=== PATIENT | male | born 1985 | race Caucasian/White ===

== ENCOUNTER → 2019-04-11 09:19 | Outpatient (CLI) | payer BC, SELFPAY ==
[2019-04-11 11:23] LABS: Anion Gap 5 (5-15); BUN 18 mg/dL (7-18); BUN/Creat Ratio 19.4 RATIO (10-20); Chloride 108 mmol/L (98-107); Cholesterol 184 mg/dL (200); Creatinine, Serum 0.93 mg/dL (0.70-1.30); EST Glomerular Filtration Rate 100 mL/min (>60); Est Glom Filt Rate - Afr Amer 121 mL/min (>60); Glucose 92 mg/dL (74-106); High Density Lipoprotein 53 mg/dL; Potassium 4.2 mmol/L (3.5-5.1); Sodium Level 141 mmol/L (136-145); Triglycerides 60 mg/dL; Very Low Density Lipoprotein 12 mg/dL (5-40)
== END ==
PROVIDERS: Family Provider Family Medicine; PCP Family Medicine; Referring Provider Family Medicine; Visit Provider Family Medicine
DX: Z13.1 Encounter for screening for diabetes mellitus (principal); Z13.220 Encounter for screening for lipoid disorders
CPT/HCPCS: 36415; 80048; 80061

== ENCOUNTER 2019-05-07 07:25 | Day surgery (SDC) | payer BC, SELFPAY ==
--- NOTE | 2019-04-09 03:23 | HP_ITS ---
Intake Vital Signs 04/09/19 Height 6 ft 04/09/19 Weight: 221 lb 6 oz 04/09/19 Body Mass Index (BMI) 30.0 04/09/19 Blood Pressure 145/78 H 04/09/19 Blood Pressure Location Rt brachial 04/09/19 Blood Pressure Position Sitting 04/09/19 Respiratory Rate 16 04/09/19 Pulse Rate 67 04/09/19 Pulse Ox 99 Intake Visit Reasons: L Inguinal Hernia Chief Complaint: left inguinal hernia Acid Condenser Required: No Is patient in pain?: Yes (left groin into left testicle and left lower abd ) Pain scale (1-10): 5 Allergies No Known Allergies Allergy (Verified 04/09/19 15:07) Medications NK 04/09/19 [History Confirmed 04/09/19] PFSH Medical History Left inguinal hernia (Acute) Surgical History History of bilateral inguinal hernia repair (Acute ~1988) Family History Mother Menieres disease Social History (Updated 04/09/19 @ 15:24 by Alejandro Mccoy MD) Smoking Status: Former smoker HPI HPI HPI: VIKTOR URIBE, is a 34 M who presents to the office today for HPI HPI Surgical H&P: Yes HPI: VIKTOR URIBE, is a 34 M who presents to the office today for Evaluation for a left inguinal hernia. Patient presents with left inguinal pain this happened approximately a month ago when he was working coughed and was turning and felt sharp pain going from his left groin into his testicle area. He states that when he lies down this pain goes away. He has felt a bulge go in and out.He was seen by his primary care physician and diagnosed with a left inguinal hernia presents today. ROS General General: No weight change, appetite, fatigue, colon cancer, breast cancer or weakness HEENT HEENT: No difficulty swallowing, eye injury, eye surgery, swollen glands or hoarseness Endo Endocrine: No thyroid disease, diabetes mellitus, thyroid cancer, Hair loss, heat intolerance or cold intolerance Cardio Cardiovascular: No murmur, pacemaker, heart disease, atrial fibrillation, high blood pressure, heart attack, heart stent, palpitations, shortness of breat with exertion or chest pain Resp Respiratory: No shortness of breath, No sleep apnea, No cough, No COPD, No asthma, No emphysema, No wheezing Gastro Gastrointestinal: No abdominal pain, No nausea or vomiting, No diarrhea, No constipation, No blood in stool, No acid reflux, No hemorrhoids, No ulcers, No gallbladder problem, No black,tarry stools Neuro Neurologic: No weakness Exam Const General: no acute distress, well developed, well hydrated Orientation: oriented to person, oriented to place, oriented to time [facility] Head: normocephalic, atraumatic Ears: external ears normal Mouth: moist mucous membranes Eyes Sclera: sclerae normal Pupils: normal by confrontation Neck Neck: no lymphadenopathy noted Neck mass: No Thyroid: thyroid normal, symmetrical Chest Chest palpation & inspection: normal inspection of the chest Resp Effort & Inspection: normal respiratory effort Auscultation: clear to auscultation bilaterally Percussion: percussion normal Cardio Rate: regular rate Rhythm: regular rhythm Heart Sounds: no murmurs GI Palpation: soft, no hepatosplenomegaly, no masses, tender Rectal Exam: other Other: Reducible left inguinal hernia is palpated. I do not feel any hernias on the right side.He has a large varicocele on the left side as well. Rectal exam deferred. Extrem General: normal to inspection, no clubbing, cyanosis or edema Assessment & Plan Problems 1. Left inguinal hernia K40.90 Plan My plan is to perform a Robotic assisted laparoscopic left inguinal hernia repair. The planned surgical procedure was discussed extensively with the patient. The risks, benefits, anticipated outcomes and possible complication were mentioned. The patient understands that all hernia repair surgery has a chance of recurrence and/or chronic post-operative pain. My staff has also explained the procedure in understandable terms and the patient was given the option to take printed material concerning the planned procedure. The patient had the opportunity to ask questions concerning the planned procedure. The patient freely consents to the planned procedure. Coding Level of Care Code Off vis,new,level 3 Diagnoses Left inguinal hernia K40.90 04/09/19 1524 <Electronically signed by Alejandro snow MD> Date _ Alejandro Mccoy MD
[2019-05-07] VITALS (9 sets, daily range): BP systolic 113–134; BP diastolic 68–85; PULSE 76–90; RESP 16–18; TEMP 36.3–37.1; O2SAT 93–100; BMI 29.7
[2019-05-07] MEDS: Lactated Ringers 1,000 ML 100 ML IV ×3 (07:55→11:32)
--- NOTE | 2019-05-07 09:14 | HP.PCM_ITS ---
History and Physical Date of Admission: 05/07/19 [facility] [address] [place], [place] [address] OFFICE VISIT Date of Service: 04/09/19 MR#: [id number] Acct: [id number] Name: VIKTOR URIBE Rep #: [id number] : 1985 Provider: Alejandro barbosa MD Age/Sex: 34/M Location: [facility] Status: Signed Intake Vital Signs 04/09/19 Height 6 ft 04/09/19 Weight: 221 lb 6 oz 04/09/19 Body Mass Index (BMI) 30.0 04/09/19 Blood Pressure 145/78 H 04/09/19 Blood Pressure Location Rt brachial 04/09/19 Blood Pressure Position Sitting 04/09/19 Respiratory Rate 16 04/09/19 Pulse Rate 67 04/09/19 Pulse Ox 99 Intake Visit Reasons: L Inguinal Hernia Chief Complaint: left inguinal hernia [employer] Required: No Is patient in pain?: Yes (left groin into left testicle and left lower abd ) Pain scale (1-10): 5 Allergies No Known Allergies Allergy (Verified 04/09/19 15:07) Medications NK 04/09/19 [History Confirmed 04/09/19] [facility] Medical History Left inguinal hernia (Acute) Surgical History History of bilateral inguinal hernia repair (Acute ~1988) Family History Mother Menieres disease Social History (Updated 04/09/19 @ 15:24 by Alejandro Mccoy MD) Smoking Status: Former smoker HPI HPI HPI: VIKTOR URIBE is a 34 M who presents to the office today for HPI HPI Surgical H&P: Yes HPI: VIKTOR URIBE is a 34 M who presents to the office today for Evaluation for a left inguinal hernia. Patient presents with left inguinal pain this happened approximately a month ago when he was working coughed and was turning and felt sharp pain going from his left groin into his testicle area. He states that when he lies down this pain goes away. He has felt a bulge go in and out.He was seen by his primary care physician and diagnosed with a left inguinal hernia presents today. ROS General General: No weight change, appetite, fatigue, colon cancer, breast cancer or weakness HEENT HEENT: No difficulty swallowing, eye injury, eye surgery, swollen glands or hoarseness Endo Endocrine: No thyroid disease, diabetes mellitus, thyroid cancer, Hair loss, heat intolerance or cold intolerance Cardio Cardiovascular: No murmur, pacemaker, heart disease, atrial fibrillation, high blood pressure, heart attack, heart stent, palpitations, shortness of breat with exertion or chest pain Resp Respiratory: No shortness of breath, No sleep apnea, No cough, No COPD, No asthma, No emphysema, No wheezing Gastro Gastrointestinal: No abdominal pain, No nausea or vomiting, No diarrhea, No constipation, No blood in stool, No acid reflux, No hemorrhoids, No ulcers, No gallbladder problem, No black,tarry stools Neuro Neurologic: No weakness Exam Const General: no acute distress, well developed, well hydrated Orientation: oriented to person, oriented to place, oriented to time [facility] Head: normocephalic, atraumatic Ears: external ears normal Mouth: moist mucous membranes Eyes Sclera: sclerae normal Pupils: normal by confrontation Neck Neck: no lymphadenopathy noted Neck mass: No Thyroid: thyroid normal, symmetrical Chest Chest palpation & inspection: normal inspection of the chest Resp Effort & Inspection: normal respiratory effort Auscultation: clear to auscultation bilaterally Percussion: percussion normal Cardio Rate: regular rate Rhythm: regular rhythm Heart Sounds: no murmurs GI Palpation: soft, no hepatosplenomegaly, no masses, tender Rectal Exam: other Other: Reducible left inguinal hernia is palpated. I do not feel any hernias on the right side.He has a large varicocele on the left side as well. Rectal exam deferred. Extrem General: normal to inspection, no clubbing, cyanosis or edema Assessment & Plan Problems 1. Left inguinal hernia K40.90 Plan My plan is to perform a Robotic assisted laparoscopic left inguinal hernia repair. The planned surgical procedure was discussed extensively with the patient. The risks, benefits, anticipated outcomes and possible complication were mentioned. The patient understands that all hernia repair surgery has a chance of recurrence and/or chronic post-operative pain. My staff has also explained the procedure in understandable terms and the patient was given the option to take printed material concerning the planned procedure. The patient had the opportunity to ask questions concerning the planned procedure. The patient freely consents to the planned procedure. Coding Level of Care Code Off vis,new,level 3 Diagnoses Left inguinal hernia K40.90 04/09/19 1524 <Electronically signed by Alejandro snow MD> Date _ [facility] Signature: Date (if applicable) CC: Jacques Colón MD ~ I have re-examined the patient. There are no clinical changes since date of exam.
[2019-05-07] MEDS: Cefazolin 2 GM in 0.9% Normal Saline 100 ML IV (09:51)
--- NOTE | 2019-05-07 09:58 | PCM.OPRPT ---
Problem List (1) Left inguinal hernia Status: Acute Report of Operation Date of Procedure: 05/07/19 Pre-Operative Diagnosis: Left inguinal hernia Post-Operative Diagnosis: Same Surgery/Procedure Performed:: Robotically assisted laparoscopic left inguinal hernia Type of Anesthesia:: General Anesthesiologist: Scott Roque Specimen's removed: None Estimated Blood Loss (mL): < 25 cc Fluids Replaced: 1 L LR Description of Procedure: Patient was brought into the operating room. Placed in the supine position under excellent general trach intubation was placed in the headdown position and rotated to the right. The abdomen was then sterilely prepped and draped in usual fashion. Local was injected supraumbilically dissection was carried down to the fascia the fascia grasped with a Derrick varies needle was placed inside the abdomen the abdomen was insufflated to 15 torr #8 trocar was placed without difficulty. It was flank by 2 #8 trochars both of these placed under direct visualization. The robot came in and was docked appropriately and visualization of the left lower quadrant was performed. Pro-rotary swaging machine operator was placed on the #2 arm and cautery scissors was placed in the right arm. I scored the peritoneum dissecting down and preperitoneal fascia down to Lucas's ligament. I dissected laterally. I dissected the cord and vessel structures free from the peritoneum and I dissected further laterally I brought a large cord lipoma out of the inguinal area and placed it in the preperitoneal space. I fashioned a large 3D max mesh into the wound I tacked it to Lucas's ligament with a suture of 0 Vicryl. The mesh laid completely flat. Dr. Gill to help me and showing techniques on how to close the peritoneum using a 30V lock undyed suture which cover the mesh completely laying it completely flat. Abdomen was deflated trochars were removed under direct visualization good hemostasis was noted skin incisions were closed with some particular stitches of 4-0 Monocryl Steri-Strips were applied sterile dressings were applied and the patient tolerated the procedure well. - Admit VTE Documentation VTE Present on Admission: No VTE Mechan Device Prophylaxis: SCD's VTE Pharm Prophylaxis ordered?: No Reason prophylaxis not ordered:: Treatment Not Indicated
--- NOTE | 2019-05-07 10:00 | DCINST_ITS ---
Discharge Diet: Light diet - advance as tolerated Discharge Activity: Return to Normal Activity, May Drive - when you are no longer taking narcotic pain medications., May Shower - with the bandage in place 1-2 days after surgery. Lifting Restrictions: 20 pounds for 8 weeks. Additional Activity Instructions:: Climbing stairs is fine, walking is encouraged. Sitting in bed may be uncomfortable. Sitting up using your lateral muscles (sitting up sideways) is usually more comfortable. Do not drive, work heavy equipment of sign legal documents for 24 hours. If your hernia repair was an ingunial repair, you may have scrotal swelling, an ice pack and/or athletic support can provide more comfort. Pain medications may cause nausea, you should typically eat light foods as you take your pain medications. Pain medications may also cause constipation. If you have difficulty with this, discuss with your doctor. Call your doctor if your incision/area has: Continuous Slow Oozing, Sudden Increased Bleeding, Increased Pain/ Swelling, Increased Redness, Foul Smelling Discharge Call your doctor if you observe: Fever of 101 or Higher Suture Line Care: Avoid Pulling/Pushing, Avoid Pinching/Bending Additional Dressing/Incision Instructions:: Leave the operative bandage on for 2-3 days. When you remove the bandage, leave the steri-strips on place until your follow up appointment or they fall off. Allergies/Adverse Reactions: Allergies No Known Allergies Allergy (Verified 05/07/19 07:46) Medications to take at Discharge lorazepam 1 mg tablet 1 mg PO DIRECTED #1 tab 05/04/19 Oxycodone HCl/Acetaminophen [Percocet 5/325] 1 - 2 tab PO Q4H PRN PRN 7 Days #30 tab 05/07/19 The following prescriptions were given: Oxycodone HCl/Acetaminophen [Percocet 5/325] 1 - 2 tab PO Q4H PRN PRN 7 Days #30 tab PRN Reason: Pain Transmission Status: Received by [facility]/pharmacy #[id number] Primary Care Physician: Jacques Colón MD [Primary Care Provider] - Test Results: Test results from this visit will be discussed in further detail at your follow- up appointment, if applicable. Please Follow Up With: Alejandro Mccoy MD - [phone] When: Plan to have a follow up appointment in 7 days. Call to schedule.
[2019-05-07] MEDS: Bupivacaine Mpf 0.5% 30 ML VIAL (11:00)
[2019-05-07] MEDS: Acetaminophen 325 MG Tablet PO (13:49)
[2019-05-07] MEDS: oxyCODONE 5 MG Tablet PO (13:50)
== END 2019-05-07 14:27 | disposition home or self-care (01) ==
LOC: SDC 07:28 → AC 07:28
PROVIDERS: Family Provider Family Medicine; PCP Family Medicine; Referring Provider Surgery; Visit Provider Surgery
PROC: 0YQ64ZZ Repair Left Inguinal Region, Percutaneous Endoscopic Approach (ICD-10-PCS; CPT 49650; principal; 2019-05-07 09:15)
DX: K40.90 Unilateral inguinal hernia, without obstruction or gangrene, not specified as recurrent (principal); K58.9 Irritable bowel syndrome, unspecified; Z79.899 Other long term (current) drug therapy; Z87.891 Personal history of nicotine dependence
CPT/HCPCS: 00840; 49650; S2900; J7120; C1781; J2405

== ENCOUNTER → 2020-06-02 | Outpatient (CLI) | payer BC, SELFPAY ==
[2019-05-07 07:47] VITALS: BMI 29.7
[2020-06-02 17:25] LABS: Absolute Lymphocyte Count 2.69 X10^3/uL (0.83-4.51); Absolute Neutrophil Count 4.9 X10^3/uL (2.0-7.7); Basophil# 0.03 X10^3/uL; Basophil% 0.3 % (0-1); Eosinophil# 0.15 X10^3/uL; Eosinophils% 1.7 % (0-5); Hematocrit 43.1 % (40-54); Hemoglobin 14.8 g/dL (13.0-16.5); Lymphocyte # 2.69 X10^3/ul (4.0); Lymphocyte % 30.5 % (19-41); Mean Corp Hgb Conc 34.3 g/dL (32-36); Mean Corpuscular Hgb 28.8 pg (27.0-32.0); Mean Corpuscular Volume 83.9 fL (80-94); Mean Platelet Vol. 9.7 fl (6.2-12.0); Monocyte# 0.98 X10^3/uL; Monocyte% 11.1 % (0-10); NRBC Flagged by Analyzer 0 % (0-5); Neutrophil # 4.94 X10^3/uL (2.7-7.7); Neutrophil % 56.2 % (47-70); Platelet Count 305 K/mm3 (150-450); RBC Distribution Width CV 11.6 % (11.6-14.6); RBC Distribution Width SD 35.3 fl (35.1-43.9); Red Blood Count 5.14 M/mm3 (4.6-6.2); White Blood Count 8.8 K/mm3 (4.4-11.0)
[2020-06-02 18:25] LABS: Anion Gap 7 (5-15); BUN 19 mg/dL (7-18); BUN/Creat Ratio 20.9 RATIO (10-20); Calcium,Total 8.9 mg/dL (8.5-10.1); Chloride 105 mmol/L (98-107); Creatinine, Serum 0.91 mg/dL (0.70-1.30); EST Glomerular Filtration Rate 102 mL/min (>60); Est Glom Filt Rate - Afr Amer 123 mL/min (>60); Glucose 86 mg/dL (74-106); Potassium 3.3 mmol/L (3.5-5.1); Sodium Level 138 mmol/L (136-145); Thyroid Stim Hormone (TSH) 1.07 uIU/mL (0.358-3.74)
== END | disposition home or self-care (01) ==
PROVIDERS: PCP Family Medicine; Referring Provider Family Medicine; Visit Provider Nurse Practitioner Family
DX: R00.2 Palpitations (principal)
CPT/HCPCS: 36415; 80048; 84443; 85025

== ENCOUNTER → 2020-07-07 09:21 | Outpatient (CLI) | payer BC, SELFPAY ==
[2019-05-07 07:47] VITALS: BMI 29.7
--- NOTE | 2020-07-07 09:30 | US_ITS ---
STUDY: ABDOMINAL ULTRASOUND REASON FOR EXAM: Male, 35 years old. ABD PAIN, INDIGESTION TECHNIQUE: Transabdominal ultrasound was performed with real-time and static chamberlain scale imaging. TECHNICAL QUALITY: Limited. Examination limited by bowel gas. COMPARISON: None. FINDINGS: Liver: The liver measures 15.5 cm. There is normal echogenicity of the liver. The bile ducts are within normal limits. There is hepatic color flow. The direction of portal flow is hepatopetal. There is no demonstrated mass lesion. Portal vein measurement: Gallbladder: Normal distended gallbladder. The gallbladder wall measures 2 mm. There is a negative sonographic Bhatt''s sign. There is no pericholecystic fluid. There are no gallstones. Common Bile Duct (C.B.D.): The common bile duct measures 5 mm. Pancreas: There is nonvisualization of the pancreas. Spleen: Normal size of the spleen. The spleen measures 11.5 cm x 3.3 cm x 4.3 cm. Right Kidney: Normal size of the right kidney. The right kidney measures 10.3 cm x 4.7 cm x 5 cm. Normal renal cortex. The right cortex measures 1.7 cm. There is no demonstrated renal mass or cyst. There is no right hydronephrosis. Left Kidney: Normal size of the left kidney. The left kidney measures 11.1 cm x 4.9 cm x 4.5 cm. Normal renal cortex. The left cortex measures 1.9 cm. There is no demonstrated renal mass or cyst. There is no left hydronephrosis. Aorta: Unremarkable I.V.C.: The IVC is patent. There is no ascites. US/Abdomen Complete IMPRESSION: Normal abdominal ultrasound examination. Electronically Signed: Jerald Layne, at 12:33 EST , Service support ,
== END ==
PROVIDERS: PCP Family Medicine; Referring Provider Family Medicine; Visit Provider Family Medicine
DX: R10.9 Unspecified abdominal pain (principal)
CPT/HCPCS: 76700

== ENCOUNTER → 2020-07-29 09:45 | Outpatient (CLI) | payer BC, SELFPAY ==
[2020-07-12 15:46] VITALS: BMI 28.5
--- NOTE | 2020-07-29 09:48 | ECHOD_ITS ---
Reason For Study: Arrhythmia Procedure This was a 2D Doppler, Color Flow transthoracic echocardiogram. The exam was of adequate technical quality. Exam performed in department. Left Ventricle Normal LV size. Left ventricular systolic function is normal. The estimated ejection fraction is 60 %. No evidence for diastolic dysfunction. No regional wall motion abnormalities noted. Right Ventricle Normal RV size. Normal systolic function. Atria Normal left atrium. Normal right atrium. No doppler evidence for ASD. Mitral Valve There is no mitral annular calcification. Normal mitral valve. Tricuspid Valve Normal tricuspid valve. Trivial tricuspid valve insufficiency. Right ventricular systolic pressure estimated to be 20 mmHg. Aortic Valve Trisinus/trileaflet aortic valve. Normal aortic valve. Pulmonic Valve The pulmonic valve is not well visualized. Great Vessels Normal sized aortic root. Pericardium/Pleural No pericardial effusion. MMode/2D Measurements & Calculations LVIDd: 4.9 cm IVSd: 0.86 cm Ao root diam: 3.1 cm LVIDs: 3.2 cm LVPWd: 1.0 cm LA dimension: 3.7 cm RVDd: 3.9 cm FS: 35.8 % LAV(MOD-bp): 50.0 ml LA A4 area: 16.8 cm2 RA A4 area: 12.9 cm2 LAV(MOD-bp) Indexed: 23.3 ml/m2 LAV(MOD-sp2): 55.0 ml LAV(MOD-sp4): 38.8 ml Time Measurements MV dec time: 0.24 sec Doppler Measurements & Calculations MV E max alex: 87.7 cm/sec Lat Peak E' Alex: 16.5 cm/sec Med Peak E' Alex: 13.9 cm/sec MV A max alex: 70.2 cm/sec E/E' lat: 5.3 E/E' med: 6.3 MV E/A: 1.2 Ao V2 max: 119.5 cm/sec LV V1 max: 107.4 cm/sec PA V2 max: 116.5 cm/sec Ao max P.7 mmHg LV V1 max P.6 mmHg TR max alex: 208.1 cm/sec TR max P.3 mmHg Interpretation Summary Left ventricular systolic function is normal. The estimated ejection fraction is 60 %. Trivial tricuspid valve insufficiency. Right ventricular systolic pressure estimated to be 20 mmHg. No evidence for diastolic dysfunction. Ordering Physician: Alvino Mancia Referring Physician: Jacques Colón Performed By: Jorge Hoskins RCS
--- NOTE | 2020-07-29 10:35 | STRESSREP ---
Stress Test Report Date: 07-29-2020 Procedure: Exercise tolerance test Indications: Palpitations; tachycardia; chest pain Consent: Per the patient Procedure: The patient exercised on a Can protocol for 10 minutes and 30 seconds completing stage III and 1 minute and 30 seconds of stage IV achieving a peak heart rate of 187 bpm (100% predicted maximal heart rate) with a peak blood pressure 170/60 mmHg and a peak MET capacity of approximately 12 MET's. The baseline ECG demonstrated sinus bradycardia. The peak exercise ECG demonstrated no obvious ECG changes. There were no cardiac dysrhythmias pretest, during exercise, or recovery. The functional capacity was considered good. The patient had no complaint of chest discomfort during exercise or recovery. The examination was discontinued secondary to dyspnea. Impression: 1. Technically adequate (percent predicted maximal heart rate greater than 85%) exercise tolerance test 2. Peak exercise ECG with no obvious ECG changes 3. There were no cardiac dysrhythmias during exercise or recovery This note was generated with [employer]oMed[employer] software. It may contain incorrect words, spelling, and punctuation that were not noted in checking the note before signing.
== END ==
PROVIDERS: PCP Family Medicine; Referring Provider Internal Medicine Cardiovascular Disease; Visit Provider Internal Medicine Cardiovascular Disease
DX: R00.2 Palpitations (principal); R00.0 Tachycardia, unspecified; R07.9 Chest pain, unspecified
CPT/HCPCS: 93017; 93306

== ENCOUNTER → 2021-03-10 09:59 | Outpatient (CLI) | payer BC, SELFPAY ==
[2021-03-10 12:17] LABS: Absolute Lymphocyte Count 2.63 X10^3/uL (0.83-4.51); Absolute Neutrophil Count 3.2 X10^3/uL (2.0-7.7); Basophil# 0.03 X10^3/uL; Basophil% 0.4 % (0-1); Eosinophil# 0.31 X10^3/uL; Eosinophils% 4.4 % (0-5); Hemoglobin 14.9 g/dL (13.0-16.5); Lymphocyte # 2.63 X10^3/ul (0.83-4.51); Lymphocyte % 36.9 % (19-41); Mean Corp Hgb Conc 33.9 g/dL (32-36); Mean Corpuscular Hgb 28.9 pg (27.0-32.0); Mean Corpuscular Volume 85.4 fL (80-94); Mean Platelet Vol. 10.5 fl (6.2-12.0); Monocyte% 12.6 % (0-10); NRBC Flagged by Analyzer 0 % (0-5); Neutrophil # 3.22 X10^3/uL (2.7-7.7); Neutrophil % 45.3 % (47-70); Platelet Count 256 K/mm3 (150-450); RBC Distribution Width CV 11.9 % (11.6-14.6); RBC Distribution Width SD 37.2 fl (35.1-43.9); Red Blood Count 5.15 M/mm3 (4.6-6.2); White Blood Count 7.1 K/mm3 (4.4-11.0)
[2021-03-10 12:23] LABS: Erythrocyte Sedimentation Rate 2 mm/hr (0-20)
[2021-03-10 12:47] LABS: ALB/GLOB Ratio 1.1 RATIO (0.9-2.4); AST(SGOT) 28 U/L (15-37); Alanine Aminotransfer ALT/SGPT 48 U/L (16-61); Alkaline Phosphatase 82 U/L (45-117); Anion Gap 4 (5-15); BUN 17 mg/dL (7-18); BUN/Creat Ratio 18.1 RATIO (10-20); Calcium,Total 8.9 mg/dL (8.5-10.1); Chloride 106 mmol/L (98-107); Creatinine, Serum 0.94 mg/dL (0.70-1.30); EST Glomerular Filtration Rate 97 mL/min (>60); Est Glom Filt Rate - Afr Amer 118 mL/min (>60); Globulin 3.5 g/dL (2.2-4.2); Glucose 99 mg/dL (74-106); Potassium 3.6 mmol/L (3.5-5.1); Protein, Total 7.5 g/dL (6.4-8.2); Sodium Level 139 mmol/L (136-145)
== END ==
PROVIDERS: PCP Family Medicine; Referring Provider Family Medicine; Visit Provider Family Medicine
DX: R10.9 Unspecified abdominal pain (principal)
CPT/HCPCS: 36415; 80053; 85025; 85652

== ENCOUNTER → 2021-03-17 14:51 | Outpatient (CLI) | payer BC, SELFPAY ==
--- NOTE | 2021-03-17 14:55 | CT_ITS ---
STUDY: CT ABDOMEN AND PELVIS WITH CONTRAST REASON FOR EXAM: Male, 36 years old. Right upper quadrant pain. RADIATION DOSAGE (If Supplied By Facility): CTDIvol = ( 18.43 ) mGy, DLP = ( 1120.65 ) mGycm TECHNIQUE: Transaxial images were obtained from the dome of the diaphragm to the symphysis pubis with oral contrast. Oral and amp; IV Gastrografin and amp; 100mL Isovue-370 was administered. Sagittal and coronal images were reconstructed. Individualized dose optimization techniques were used for this CT. COMPARISON: None. FINDINGS: The visualized lung bases are unremarkable. The visualized portions of the heart are within normal limits. Normal liver. Normal gallbladder and extrahepatic biliary system. Normal spleen. Normal pancreas. Normal bilateral adrenal glands. Normal right kidney. Normal left kidney. There is a small hiatal hernia. Normal small intestine. Normal colon. The appendix is visualized and appears normal. Normal abdominal aorta. Normal inferior vena cava. Normal retroperitoneum. Normal urinary bladder. Normal abdominal wall. Normal osseous structures. CT/Abdomen/Pelvis WITH Contrast IMPRESSION: Normal enhanced CT of the abdomen and pelvis. Electronically Signed: Jerald Layne MD at 15:24 EDT , Service support ,
== END ==
PROVIDERS: PCP Family Medicine; Referring Provider Family Medicine; Visit Provider Family Medicine
DX: R10.9 Unspecified abdominal pain (principal)
CPT/HCPCS: 74177; Q9967

== ENCOUNTER → 2024-12-23 | Outpatient (CLI) | payer BC, SELFPAY ==
--- NOTE | 2024-12-23 09:11 | CT_ITS ---
PROCEDURE: ABDOMEN/PELVIS WITHOUT CONT 12/23/2024 REASON FOR EXAM: Pelvic pain x2 days, history of hernia repair TECHNIQUE: ABDOMEN/PELVIS WITHOUT CONT Noncontrast technique limits evaluation of the abdominal and pelvic viscera. Coronal and Sagittal reconstruction series were provided. One or more dose reduction techniques were used (e.g., Automated exposure control, adjustment of the mA and/or kV according to patient size, use of iterative reconstruction technique). RADIATION DOSE SUMMARY: CTDlvol: 8.60 mGy DLP: 498.70 mGycm COMPARISON: None FINDINGS: Lung bases: Clear Liver: Normal size. No obvious mass. Gallbladder: Unremarkable Spleen: Normal size. Pancreas: Normal size. No surrounding inflammation. Adrenals: Unremarkable Kidneys: No urolithiasis. No hydronephrosis. Bladder: Unremarkable Bowel: Abnormal submucosal thickening and inflammation around the distal sigmoid colon consistent with acute uncomplicated diverticulitis. No perforation or abscess is noted. Retained stool noted in the colon. Normal appendix seen on coronal recon images 51 through 56 No free intraperitoneal fluid, air, or suspicious adenopathy Bones: Unremarkable CT/Abdomen/Pelvis without Cont IMPRESSION: Acute uncomplicated distal sigmoid diverticulitis without perforation or absces s No suspicious solid organ abnormalities Normal appendix visualized Reading Location: [id number]
== END | disposition home or self-care (01) ==
PROVIDERS: PCP Family Medicine
DX: K57.32 Diverticulitis of large intestine without perforation or abscess without bleeding (principal)
CPT/HCPCS: 74176

== ENCOUNTER → 2024-12-24 | Outpatient (CLI) | payer BC, SELFPAY ==
[2024-12-24 18:29] LABS: AST(SGOT) 28 U/L (<=37); Alanine Aminotransfer ALT/SGPT 21 U/L (<=46); Albumin, Serum 4.4 g/dL (3.5-5.0); Alkaline Phosphatase 76 U/L (40-129); Anion Gap 13 (5-15); BUN 15 mg/dL (4-19); BUN/Creat Ratio 16.7 RATIO (10-20); Calcium,Total 9.5 mg/dL (7.6-11.0); Carbon Dioxide 23.6 mmol/L (21.0-32.0); Chloride 101 mmol/L (98-108); Globulin 3.2 g/dL (2.2-4.2); Glucose 75 mg/dL (70-99); Potassium 3.7 mmol/L (3.3-5.1)
[2024-12-24 18:54] LABS: Hematocrit 40.6 % (40-54); Hemoglobin 13.9 g/dL (13.0-16.5); Mean Corp Hgb Conc 34.2 g/dL (32-36); Mean Corpuscular Volume 89.2 fL (80-94); Mean Platelet Vol. 10.2 fl (6.2-12.0); Platelet Count 279 K/mm3 (150-450); RBC Distribution Width CV 11.8 % (11.6-14.6); RBC Distribution Width SD 38.2 fl (35.1-43.9); Red Blood Count 4.55 M/mm3 (4.6-6.2); White Blood Count 7.3 K/mm3 (4.4-11.0)
[2024-12-24 18:59] LABS: Amylase 64 U/L (28-100); CRP 37.20 mg/L (0.0-3.0); Lipase 19 U/L (13-75)
== END | disposition home or self-care (01) ==
LOC: MTLAB 15:44
PROVIDERS: PCP Family Medicine
DX: R10.9 Unspecified abdominal pain (principal)
CPT/HCPCS: 36415; 80053; 82150; 83690; 85027; 86140